=== PATIENT | female | born 1955 | race Caucasian/White ===

== ENCOUNTER → 2021-09-24 12:33 | Outpatient (CLI) | payer MEDICARE, SELFPAY ==
--- NOTE | ~2021-09-24 | DEXA_ITS ---
Bone Density Report Name: ADIEL RIVAS Age: 66 Sex: Female Ethnicity: White Date of : 1955 Indication: osteopenia; postmenopausal Referring Provider: Uriel Mccann Study: Bone densitometry was performed. Exam Date: September 24, 2021 Accession number: [id number] Bone Density: Region BMD T-score Z-score Classification AP Spine (L1-L4) 1.065 0.2 2.0 Normal Femoral Neck (Left) 0.798 -0.5 1.1 Normal Total Hip (Left) 0.918 -0.2 1.1 Normal Femoral Neck (Right) 0.779 -0.6 1.0 Normal Total Hip (Right) 0.888 -0.4 0.9 Normal Total Hip Mean 0.903 -0.3 1.0 Normal World Health Organization criteria for BMD impression classify patients as: Normal (T-score at or above -1.0), Osteopenia (T-score between -1.0 and -2.5), or Osteoporosis (T-score at or below -2.5). 10-year Fracture Risk: FRAX not reported because: All T-scores for Spine Total, Hip Total, Femoral Neck at or above -1.0 Previous Exams: Region Exam Age BMD T-score BMD Change BMD Change Date g/cm2 vs Baseline vs Previous AP Spine(L1-L4) 09/24/2021 66 1.065 0.2 0.129* 0.069* 11/07/2012 57 0.995 -0.5 0.059* 0.033* 04/23/2009 54 0.962 -0.8 0.026* 0.029* 03/09/2007 52 0.933 -1.0 -0.002 -0.002 06/22/2005 50 0.936 -1.0 Total Hip(Left) 09/24/2021 66 0.918 -0.2 0.093* 0.110* 11/07/2012 57 0.808 -1.1 -0.016 0.023 04/23/2009 54 0.785 -1.3 -0.039* -0.007 03/09/2007 52 0.792 -1.2 -0.032* -0.032* 06/22/2005 50 0.824 -1.0 Total Hip(Right) 09/24/2021 66 0.888 -0.4 0.012 0.099* 11/07/2012 57 0.789 -1.3 -0.087* 0.028* 04/23/2009 54 0.761 -1.5 -0.115* -0.033* 03/09/2007 52 0.794 -1.2 -0.082* -0.082* 06/22/2005 50 0.876 -0.5 *Denotes significance at 95% confidence level, LSC for AP Spine = 0.022 g/cm2, LSC for Total Hip = 0.027 g/cm2 Clinical Information Provided by Patient: Has used the following medications: HRT (i.e. estrogen/hormone therapy), Vitamin D, Calcium Patient maximum height was 65 Menopause Age: 50 Drinks caffeinated beverages Onset of menses at age 14 Number of children 3 Impression: The patient has normal bone mass. No significant bone loss was observed. Discussion: BONE DENSITY IS ABOVE THE MINIMUM
== END ==
PROVIDERS: PCP Family Medicine; Visit Provider Nurse Practitioner Family
DX: Z78.0 Asymptomatic menopausal state (principal)
CPT/HCPCS: 77080

== ENCOUNTER 2022-09-30 06:52 | Day surgery (SDC) | payer MEDICARE, SELFPAY ==
[2022-08-25 14:49] VITALS: BMI 20.7
[2022-09-15 11:12] VITALS: BMI 20.9
--- NOTE | 2022-09-30 07:07 | WPDANESEPPF ---
Anes - Initial Pre Proc Eval Procedure: Operation Date: 09/30/22 08:30 Proposed Procedures p Screening Colonoscopy - Tony Conroy MD Date/Time: 09/30/22 07:07 Surgeon: Tony Conroy MD Pre Op Diagnosis: Neoplasm Screening Patient Data Age: 67 Gender: F Height: 1.65 m Weight: 57 kg Allergies Allergy/AdvReac Type Severity Reaction Status Date / Time No Known Allergies Allergy Verified 09/30/22 07:16 Home Medications Medication Instructions Recorded Confirmed Type calcium carbonate 500 mg calcium 500 mg PO DAILY 03/17/21 09/30/22 History (1,250 mg) tablet cholecalciferol (vitamin D3) 25 25 mcg PO DAILY 03/17/21 09/30/22 History mcg (1,000 unit) tablet (Vitamin D3) glucosam 750 mg-chondroi 100 1 tablet PO DAILY 03/17/21 09/30/22 History mg-hyalur 1.65 mg-CF borate 108 mg tablet ([employer]) alprazolam 0.5 mg tablet (Xanax) 0.5 mg PO QHS PRN sleep #30 tabs 08/04/22 09/30/22 Rx diclofenac sodium 50 mg 50 mg PO TID PRN pain #90 tabs 08/04/22 09/30/22 Rx tablet,delayed release levothyroxine 100 mcg tablet 100 mcg PO DAILY #90 tabs 09/13/22 09/30/22 Rx Patient hx anesthesia problems: none Family hx anesthesia problems: none Results Review: All pre-operative results and documents have been reviewed as part of the pre-operative evaluation. [facility] Past Medical History Medical History Anxiety BMI 20.0-20.9, adult Hormone replacement therapy Hx of fibrocystic disease of breast Hypothyroid Osteoarthritis Osteopenia Post-menopausal Screen for colon cancer Screening for lipid disorders Varicose veins of both lower extremities Surgical History Surgical History History of breast augmentation Family History Family History Other Diabetes mellitus Hypertension Thyroid disease Social History Social History Smoking status: Never smoker Alcohol intake: never Drinks per week: 4 Substance use: never Substance use type: does not use Lack of Food: Never True Current Housing: I Have Housing Concerned About Future Housing: No Difficulty Paying Gas/Electric Bills: No Difficulty Paying for Meds: No Currently Unemployed: No Education: Master's Degree or Higher Living arrangements: with family Spiritual care concerns: No Anes - Eval Final PreProcedure Day of Procedure 09/30/22 07:07 Patient weight: normal Heart: regular rate and rhythm Lungs: clear to auscultation and normal air movement Airway: Mallampati scale class II Neurological: alert and oriented Last oral intake: >/= 8 hours ASA classification: II Emergent: no Anesthetic plan: proceed Anesthesia type and monitoring: general GIVS and standard monitoring Results Review: All pre-operative results and documents have been reviewed as part of the pre-operative evaluation. Informed Consent: The patient's anesthetic plan and its attendant risks and benefits were discussed with the patient/family/POA. Questions were solicited and answers provided to the satisfaction of the patient/family/POA.
[2022-09-30 07:10] VITALS: BP 138/59; PULSE 60; RESP 18; TEMP 36.9; O2SAT 100
--- NOTE | 2022-09-30 07:22 | PM.HPGS ---
History of Present Illness History of Present Illness Consent: Risks, benefits, and alternatives have been discussed and questions answered. Patient agrees to proceed with procedure. Chief complaint: Neoplasm Screening Narrative: Ann-Marie Germain is a 67 year old female Presents for screening colonoscopy. Patient's current weight appetite and bowel movements are normal. Patient denies abdominal pain. She has had no bleeding. Family history is noncontributory. Previous colonoscopy 2009 was unremarkable. Patient presents today for neoplasia screening colonoscopy. Review of Systems Review of Systems: Review of systems noncontributory. [facility] Past Medical History Medical History Anxiety BMI 20.0-20.9, adult Hormone replacement therapy Hx of fibrocystic disease of breast Hypothyroid Osteoarthritis Osteopenia Post-menopausal Screen for colon cancer Screening for lipid disorders Varicose veins of both lower extremities Surgical History Surgical History History of breast augmentation Family History Family History Other Diabetes mellitus Hypertension Thyroid disease Social History Social History Smoking status: Never smoker Alcohol intake: never Drinks per week: 4 Substance use: never Substance use type: does not use Lack of Food: Never True Current Housing: I Have Housing Concerned About Future Housing: No Difficulty Paying Gas/Electric Bills: No Difficulty Paying for Meds: No Currently Unemployed: No Education: Master's Degree or Higher Living arrangements: with family Spiritual care concerns: No Meds Home Medications and Allergies Home Medications Medication Instructions Recorded Confirmed Type calcium carbonate 500 mg calcium 500 mg PO DAILY 03/17/21 09/30/22 History (1,250 mg) tablet cholecalciferol (vitamin D3) 25 25 mcg PO DAILY 03/17/21 09/30/22 History mcg (1,000 unit) tablet (Vitamin D3) glucosam 750 mg-chondroi 100 1 tablet PO DAILY 03/17/21 09/30/22 History mg-hyalur 1.65 mg-CF borate 108 mg tablet ([employer]) alprazolam 0.5 mg tablet (Xanax) 0.5 mg PO QHS PRN sleep #30 tabs 08/04/22 09/30/22 Rx diclofenac sodium 50 mg 50 mg PO TID PRN pain #90 tabs 08/04/22 09/30/22 Rx tablet,delayed release levothyroxine 100 mcg tablet 100 mcg PO DAILY #90 tabs 09/13/22 09/30/22 Rx Allergies Allergy/AdvReac Type Severity Reaction Status Date / Time No Known Allergies Allergy Verified 09/30/22 07:16 Vital Signs Vital Signs - 24 hr 09/30/22 07:10 Temperature 98.5 F Pulse Rate 60 Respiratory Rate 18 Blood Pressure 138/59 L Pulse Oximetry 100 Oxygen Delivery Room Air Exam Narrative: Physical exam reveals patient to be alert. Vital signs stable. HEENT exam is unremarkable. Patient is anicteric. Lungs are clear to auscultation and percussion. Heart is without murmur or extra sounds. Abdomen bowel sounds are present soft nontender with no organomegaly. Digital external rectal exam normal. Assessment and Plan Assessment and plan (1) Screen for colon cancer: Code(s): Z12.11 - Encounter for screening for malignant neoplasm of colon Status: Acute Assessment and Plan: Patient presents for screening colonoscopy. She appears to be at average risk for colon polyps. Further recommendations may be given after endoscopy.
[2022-09-30] MEDS: LACTATED RINGERS 1,000 ML 150 ML IV CONT (07:51)
[2022-09-30] MEDS: SIMETHICONE ORAL SUSPENSION 20 MG/0.3 ML 30 ML BOTTLE 0.6 ML IRRIGATION (08:53)
[2022-09-30 09:06] VITALS: BP 131/73; PULSE 80; RESP 16; O2SAT 99
[2022-09-30 09:16] VITALS: BP 133/70; PULSE 66; RESP 18; O2SAT 100
[2022-09-30 09:26] VITALS: BP 122/61; PULSE 62; RESP 18; O2SAT 100
--- NOTE | 2022-09-30 12:55 | WPDANESPN ---
Anes - Prog Note Post-Op Date/Time: 09/30/22 12:55 Cardiovascular status: normal Respiratory status: normal Airway patency: baseline Mental status: baseline Post-Op hydration status: normal Vital Signs: Last Vital Signs Temp 36.9 C 09/30/22 07:10 Pulse 62 09/30/22 09:26 Resp 18 09/30/22 09:26 BP 122/61 09/30/22 09:26 Pulse Ox 100 09/30/22 09:26 O2 Del Method Room Air 09/30/22 09:26 Pain Score (VAS): 0 I/O: Intake & Output 09/29/22 09/30/22 09/30/22 23:59 07:59 15:59 Intake Total 800 Balance 800 Post-procedural complaints: none Patient Feedback: Patient satisfied with anesthetic care. Other Findings: Patient vital signs back to baseline. Patient denies nausea and vomiting. Patient's pain under control. Patient OK for discharge.
== END 2022-09-30 09:49 | disposition home or self-care (01) ==
PROVIDERS: PCP Family Medicine; Visit Provider Internal Medicine Gastroenterology
PROC: 0DJD8ZZ Inspection of Lower Intestinal Tract, Via Natural or Artificial Opening Endoscopic (ICD-10-PCS; CPT 45378; principal; 2022-09-30 08:30)
DX: Z12.11 Encounter for screening for malignant neoplasm of colon (principal)
CPT/HCPCS: 45378

== ENCOUNTER 2023-09-09 11:28 | Outpatient (CLI) | payer MEDICARE, SELFPAY ==
--- NOTE | ~2023-09-09 | XR_ITS ---
Left Shoulder Technique: AP and axillary views were obtained. Clinical History: Pain Findings: No fracture or dislocation is seen. Osseous alignment is anatomic. The glenohumeral and acr omioclavicular joint spaces are preserved. Questionable developing calcific tendinitis of the rotator cuff. Impression: Questionable developing calcific tendinitis of the rotator cuff. Reviewed, dictated and finalized at location . Impression: Questionable developing calcific tendinitis of the rotator cuff.
== END 2023-09-09 11:29 ==
LOC: MICIMG 11:29
PROVIDERS: PCP Family Medicine; Visit Provider Physician Assistant Medical
DX: M25.512 Pain in left shoulder (principal)
CPT/HCPCS: 73030

== ENCOUNTER 2024-01-04 14:38 | Outpatient (CLI) | payer MEDICARE, SELFPAY ==
--- NOTE | ~2024-01-04 | DEXA_ITS ---
Bone Density Report Name: ADIEL RIVAS Age: 68 Sex: Female Ethnicity: White Date of : 1955 Indication: postmenopausal; screening for osteoporosis; height loss; secondary osteoporosis; Referring Provider: GINA COLLIER Study: Bone densitometry was performed. Exam Date: January 04, 2024 Accession number: [id number] Bone Density: Region BMD T-score Z-score Classification AP Spine(L1-L4) 1.105 0.5 2.6 Normal Femoral Neck (Left) 0.805 -0.4 1.3 Normal Total Hip (Left) 0.849 -0.8 0.7 Normal Femoral Neck (Right) 0.794 -0.5 1.2 Normal Total Hip (Right) 0.878 -0.5 0.9 Normal Total Hip Mean 0.864 -0.7 0.8 Normal World Health Organization criteria for BMD impression classify patients as: Normal (T-score at or above -1.0), Osteopenia (T-score between -1.0 and -2.5), or Osteoporosis (T-score at or below -2.5). 10-year Fracture Risk: FRAX not reported because: All T-scores for Spine Total, Hip Total, Femoral Neck at or above -1.0 Clinical Information Provided by Patient: Has secondary osteoporosis Has used the following medications: Vitamin D, Calcium Patient maximum height was 65 Menopause Age: 47 Drinks caffeinated beverages Onset of menses at age 13 Number of children 3 Impression: The patient has normal bone mass. Discussion: BONE DENSITY IS ABOVE THE MINIMUM DESIRABLE LEVEL AT ALL SKELETAL SITES TESTED. This patient?s bone mineral density is above the minimum desirable level (T-score -1.0 or better) at all sites measured. The patient should follow a healthful lifestyle (good nutrition with adequate calcium and vitamin D, and appropriate weight-bearing exercise). Follow-Up: Consider repeating this study in 5 years or sooner if there is some new clinical indication. Reported by: RUDY on 01/04/2024 3:07:00 PM. Reviewed, dictated and finalized at location [facility]
== END 2024-01-04 14:39 | disposition home or self-care (01) ==
LOC: ANHIMG 14:40
PROVIDERS: PCP Family Medicine; Visit Provider Physician Assistant Medical
DX: Z78.0 Asymptomatic menopausal state (principal)
CPT/HCPCS: 77080

== ENCOUNTER 2024-01-24 10:49 | Outpatient (CLI) | payer MEDICARE, SELFPAY ==
--- NOTE | ~2024-01-24 | MR_ITS ---
EXAMINATION: MR shoulder LT wo con DATE: 01/24/2024 11:24 INDICATION: Left shoulder pain post lifting injury TECHNIQUE: Magnetic resonance imaging (MRI) of the left shoulder was performed without intravenous co ntrast. Sequences included axial PD-weighted FS FSE, coronal oblique PD-weighted FS FSE, coronal obli que T2-weighted FS FSE, sagittal PD-weighted FS FSE, and sagittal T1-weighted SE. COMPARISON: None. FINDINGS: Coracoacromial arch: The acromion undersurface is curved in morphology (type II). The coracoacromial ligament is normal. M ild to moderate acromioclavicular osteoarthritis. Rotator cuff: Mild supraspinatus and infraspinatus tendinopathy. There is a small intrasubstance tear at the greate r tuberosity footplate of the conjoined portion of the tendon which involves two thirds of the tendon thickness but without evident involvement of the articular or bursal surfaces. The teres minor tendo n and subscapularis tendon are normal. Normal rotator cuff muscle bulk and signal. Biceps tendon, glenoid labrum and glenohumeral cartilage: Long head of the biceps tendon is normal. Glenoid labrum is normal. There is mild partial-thickness c artilage loss with smooth chondral surface and without degenerative subchondral changes along the inf eromedial aspect of the humeral head. Fluid: Physiologic amount of fluid in the glenohumeral joint and biceps tendon sheath. No loose osteochondr al bodies. Mild increased fluid signal in the subacromial/subdeltoid bursa consistent with mild bursi tis. Bones: Mild cystic and edema-like signal change at the greater tuberosity at the site of the intrasubstance rotator cuff tear. No fracture or abnormal marrow replacing process. IMPRESSION: 1. Mild supraspinatus and infraspinatus tendinopathy with small moderate severity intrasubstance tear at the footplate of the conjoined portion of the tendon. 2. Mild glenohumeral and mild to moderate acromioclavicular osteoarthritis. 3. Mild subacromial/subdeltoid bursitis. Reviewed, dictated and finalized at location B. IMPRESSION: 1. Mild supraspinatus and infraspinatus tendinopathy with small moderate severi ty intrasubstance tear at the footplate of the conjoined portion of the tendon. 2. Mild glenohumeral and mild to moderate acromioclavicular osteoarthritis. 3. Mild subacromial/subdeltoid bursitis.
== END 2024-01-24 10:50 | disposition home or self-care (01) ==
LOC: GOSHIMG 10:50
PROVIDERS: PCP Family Medicine; Visit Provider Nurse Practitioner Adult Health
DX: M77.8 Other enthesopathies, not elsewhere classified (principal); M75.52 Bursitis of left shoulder; M19.012 Primary osteoarthritis, left shoulder
CPT/HCPCS: 73221

== ENCOUNTER 2024-07-04 12:51 | Outpatient (CLI) | payer MEDICARE, SELFPAY ==
--- NOTE | ~2024-07-04 | US_ITS ---
EXAMINATION: US FNA additional DATE: 07/04/2024 14:11 INDICATION: Thyroid nodules TECHNIQUE: A time-out was performed to verify the patient's name, date of , and procedure to be performed . The procedure and its benefits and risks were discussed with the patient. Risks specifically discus sed included bleeding and infection. The patient understood the risks and agreed to proceed. The neck was prepped and draped in the usual sterile manner. Attention was first turned to the nodule left th yroid lobe. 5 mL 1% lidocaine was used for local anesthesia. 6 passes were made with a 25G needle in to the lesion. Appropriate needle location was documented with continuous sonographic guidance. Atte ntion was then transferred to the nodule at the thyroid isthmus. An additional 4 mm one percent lidoc kenneth was used for local anesthesia. 6 passes were made with a 25G needle into the lesion. Appropriat e needle location was documented with continuous sonographic guidance. Sterile bandages were applied. There were no immediate complications. FINDINGS: Grayscale ultrasound images demonstrate biopsy needles advanced first into the 2.2 cm solid hypoechoi c TI RADS 4 nodule in the inferior left thyroid. Subsequent images demonstrate biopsy needles advance d into the 1.5 cm solid isoechoic TI RADS 3 nodule at the thyroid isthmus. IMPRESSION: 1. Successful ultrasound-guided fine needle aspiration of a 2.2 cm TI-RADS 4 left thyroid nodule. 2. Successful ultrasound guided fine needle aspiration of a 1.5 cm TI-RADS 3 nodule at the thyroid is thmus. Reviewed, dictated and finalized at location A. BASIS ADMINISTRATOR IMPRESSION: 1. Successful ultrasound-guided fine needle aspiration of a 2.2 cm TI-RADS 4 l eft thyroid nodule. 2. Successful ultrasound guided fine needle aspiration of a 1.5 cm TI-RADS 3 no dule at the thyroid isthmus.
--- NOTE | ~2024-07-04 | US_ITS ---
EXAMINATION: US FNA w image guidance DATE: 07/04/2024 14:11 INDICATION: Thyroid nodules TECHNIQUE: A time-out was performed to verify the patient's name, date of , and procedure to be performed . The procedure and its benefits and risks were discussed with the patient. Risks specifically discus sed included bleeding and infection. The patient understood the risks and agreed to proceed. The neck was prepped and draped in the usual sterile manner. Attention was first turned to the nodule left th yroid lobe. 5 mL 1% lidocaine was used for local anesthesia. 6 passes were made with a 25G needle in to the lesion. Appropriate needle location was documented with continuous sonographic guidance. Atte ntion was then transferred to the nodule at the thyroid isthmus. An additional 4 mm one percent lidoc kenneth was used for local anesthesia. 6 passes were made with a 25G needle into the lesion. Appropriat e needle location was documented with continuous sonographic guidance. Sterile bandages were applied. There were no immediate complications. FINDINGS: Grayscale ultrasound images demonstrate biopsy needles advanced first into the 2.2 cm solid hypoechoi c TI RADS 4 nodule in the inferior left thyroid. Subsequent images demonstrate biopsy needles advance d into the 1.5 cm solid isoechoic TI RADS 3 nodule at the thyroid isthmus. IMPRESSION: 1. Successful ultrasound-guided fine needle aspiration of a 2.2 cm TI-RADS 4 left thyroid nodule. 2. Successful ultrasound guided fine needle aspiration of a 1.5 cm TI-RADS 3 nodule at the thyroid is thmus. Reviewed, dictated and finalized at location A. ER IMPRESSION: 1. Successful ultrasound-guided fine needle aspiration of a 2.2 cm TI-RADS 4 l eft thyroid nodule. 2. Successful ultrasound guided fine needle aspiration of a 1.5 cm TI-RADS 3 no dule at the thyroid isthmus.
--- OUTSIDE RECORDS SUMMARY | 2024-07-04 13:00 | XMS_ITS | Encounter Summary ---
Author Organization [facility] Address [address] [place] [address] Care Team Providers Care Women'S Soccer Coach Name Role Phone Ni Fuchs MD Primary Care Provider [phone] Encounter Details Date Type Department Care Team (Latest Contact Info) Description 06/24/2020 MyChart Message Enc [facility] - [place] [address] [place] [address] [address] [place] [address] Ni Fuchs MD [address] [place] [address] [address] [place] [address] Covid vaccination Social History Tobacco Use Types Packs/Day Years Used Date Smoking Tobacco: Never Smokeless Tobacco: Never Comments:Dr Fuchs Alcohol Use Standard Drinks/Week Comments Yes 5 (1 standard drink = 0.6 oz pur e alcohol) wine occasionally PHQ-2 Answer Date Recorded PHQ-2 Score 0 06/18/2020 Comments No Sex and Gender Information Value Date Recorded Sex Assigned at Not on file Legal Sex Female 9:29 AM CDT Gender Identity Not on file Sexual Orientation Not on file COVID-19 Exposure Response Date Recorded In the last month, have you been in contact with someone who was confirmed or suspected to have Coronavirus / COVID-19? No / Unsure 06/18/2020 2:01 PM HEAD UP OPERATOR HELPER documented as of this encounter Plan of Treatment Not on file documented as of this encounter Visit Diagnoses Not on filedocumented in this encounter Additional Health Concerns Assessment Noted Time PHQ-9 Depression Total Score: 2 06/18/19 21 3:34 PM HEAD UP OPERATOR HELPER documented as of this encounter Care Teams Women'S Soccer Coach Relationship Specialty Start Date End Date Ni Fuchs MD [address] [address] PCP - General INTERNAL MEDICINE 06/13/20 02/17/21 documented as of this encounter
--- OUTSIDE RECORDS SUMMARY | 2024-07-04 13:00 | XMS_ITS | Continuity of Care Document ---
Author Organization [facility] Address [address] [place] [address] [facility] [address] [place] [address] Phone Care Team Providers Care City Councilman Name Role Phone Ivan Zimmer Unavailable Unavailable Procedures Procedure Date Office/outpatient Visit, [facility] Advance Directives Directive Yes / No Effective Date File Name No Information Encounters Encounter Description Practice Location Reason(s) For Visit Diagnoses Date Provider Providers Copied on Encounter Office/outpat ient Visit, [facility], [address], [place], [place], [id number], [place] tel:[phone] [facility] No Information [phone] 0 Mesha Love. [address] [facility] [address], [place], [address], [place]. tel:[phone] Family History Family Member Type Diagnosis Age At Onset No Information Payers Payer name Insurance type Covered alliance party ID Authoriza tion(s) No Information Social History Type Description Quantity Date Captured Comments Sex Female Smoking Status No Information Chief Complaint And Reason For Visit No Information Reason For Referral Reason For Referral No Information History Of Present Illness Encounter Date Complaint History Of Prese nt Illness No Information Functional Status Date Functional Assessmen t No Information Instructions Date Instruction Additional Infor mation No Information Assessments Type Assessment Date No Information Patient Care Teams Name Effective Dates (start - stop) Status Members No Information
--- OUTSIDE RECORDS SUMMARY | 2024-07-04 13:00 | XMS_ITS | Referral Summary ---
Author Organization [facility] Address [address] [facility] [address] [place] [address] Phone Care Team Providers Care [employer] Name Role Phone Michi Sanchez MD Primary Care Provider Encounters Date Type Department Care Team Description 06/20/2024 9:15 AM BUS ATTENDANT Office Visit [facility] Vascular at [address] [place] [id number] Neda Estrada NP Varicose veins of both lower extremities with inflammation (Primary Dx); Acquired hypothyroidism 05/19/2024 2:00 PM BUS ATTENDANT Telemedicine [facility] Virtual Care [address] [place] [address] Dhara Rich NP Acute non-recurrent sinusitis, unspecified location (Primary Dx) from Last 3 Months Allergies No known active allergies Medications diclofenac DR (VOLTAREN) 75 mg EC tablet TK 1 T PO BID 3 12/28/2018 Active ALPRAZolam (XANAX) 0.5 mg tablet Take 0.5 mg by mouth nightly as needed Active multivitamin capsule Take 1 capsule by mouth daily Active COMPOUNDED MEDICATION, PRESCRIPTION, Bio-Identica l Active [place] Thyroid 60 mg tablet 07/14/2021 Active busPIRone (BUSPAR) 7.5 mg tablet Take 7.5 mg by mouth 2 (two) times a day 02/09/2022 Active hydroCHLOROthia zide (HYDRODIURIL) 25 mg tablet Take 25 mg by mouth daily 02/09/2022 Active levothyroxine (SYNTHROID) 88 mcg tablet Take 1 tablet (88 mcg total) by mouth daily 06/05/2024 Active Active Problems Problem Noted Date Diagnosed Date Varicose veins of both lower extremities with in flammation 06/21/2024 Assessment & Plan (06/21/2024 3:50 PM BUS ATTENDANT): Impression: Patient reports the pain to her left lower extremity associated with varicose veins. Patient has had sclerotherapy done to bilateral lower extremities with the most recent treatment approximately [address] Jaramillo. On exam, patient has a dilated vein noted to the left medial calf [id number]. Patient does not wear compression therapy at this time. Plan: Recommend compression therapy. -prescription for medical grade compression stockings given to patient to fill at [facility]. -patient to follow up as needed. Osteopenia of multiple sites 12/23/2020 Assessment & Plan (12/23/2020 3:08 PM CDT): Due for DEXA scan. Patient not currently taking calcium or vitamin d supplement. Acute pain of right shoulder 12/23/2020 Assessment & Plan (12/23/2020 3:08 PM CDT): [place] at biceps tendon insertion. Offered xray and PT, patient declined at this time. Recommended tylenol or NSAID therapy, especially when playing pickleball. Did also provide home exercises to try. Advised patient return if pain worsens, numbness, tingling, weakness occur, or any changes. Caregiver stress 12/23/2020 Assessment & Plan (12/23/2020 3:19 PM CDT): Advised patient that should she reconsider therapy or medication to let us know. She feels she can control her stress well enough currently. Trigger middle finger of left hand 07/02/2020 Postmenopausal 06/18/2020 Heart murmur 03/08/2019 Assessment & Plan (03/08/2019 5:47 PM CDT): Echocardiogram scheduled tomorrow to evaluate heart murmur BMI 21.0-21.9, adult 03/08/2019 Assessment & Plan (03/08/2019 5:47 PM CDT): With BMI 25 or less this patient is a healthy weight for age Acquired hypothyroidism 02/07/2019 Assessment & Plan (06/21/2024 3:50 PM BUS ATTENDANT): Impression: Chronic and well controlled. Plan: Continue Synthroid Assessment & Plan (03/08/2019 5:47 PM CDT): Chronic- Refill given on [place] thyroid. Primary osteoarthritis of both hands 02/07/2019 Adjustment insomnia 02/07/2019 Assessment & Plan (02/07/2019 5:29 PM CDT): Patient takes a low-dose of alprazolam on a as needed basis. During a future visit, I will explore other options for controlling insomnia. Patient is reluctant to admit that she suffers from significant anxiety or depression. Immunizations Immunization Administration Dates Next Due DTaP, Unspecified 03/08/2019 Flucelvax Influenza Quad 03/14/2017 Influenza, Quadrivalent, Spl it, Preservative Free, Intramuscular 04/08/2020,02/07/2019 Influenza, Trivalent, IM (MDV) 02/28/2014,2012 Pfizer SARS-CoV-2 Monovalent Vaccination (12+ Yrs) PURPLE 07/02/2020,06/11/2020 Pneumococcal Polysaccharide PPV23 11/27/2019 Tdap 03/08/2019 ZOSTER Recombinant 11/27/2019 Social History Tobacco Use Types Packs/Day Years Used Date Smoking Tobacco: Never Smokeless Tobacco: Never Alcohol Use Standard Drinks/Week Comments Yes 0 (1 standard drink = 0.6 oz pur e alcohol) occasional AUDIT-C Answer Date Recorded Q1: How often do you have a drink containing alc ohol? 2-3 times a week 12/23/2020 Q2: How many drinks containi ng alcohol do you have on a typical day when you are drinking? 1 or 2 12/23/2020 Frequency of Binge Drinking Not on file 12/14 PHQ-2 Answer Date Recorded PHQ-2 Total Score (If total score is 3 or more points, staff should administer the PHQ-9) 0 12/23/2020 Comments Unknown Sex and Gender Information Value Date Recorded Sex Assigned at Not on file Legal Sex Female 9:43 PM BUS ATTENDANT Gender Identity Not on file Sexual Orientation Not on file Last Filed Vital Signs Vital Sign Reading Time Taken Comments Blood Pressure 145/83 06/20/2024 9:30 AM BUS ATTENDANT Pulse 71 06/20/2024 9:30 AM BUS ATTENDANT Temperature 36.9 C (98.4 F) 03/01/2022 12:25 PM CDT Respiratory Rate 18 03/01/2022 12:25 PM CDT Oxygen Saturation 98% 06/20/2024 9:30 AM BUS ATTENDANT Inhaled Oxygen Concentration - - Weight 55.8 kg (123 lb) 06/20/2024 9:30 AM BUS ATTENDANT Height 165.1 cm (5' 5 ) 06/20/2024 9:30 AM BUS ATTENDANT Body Mass Index 20.47 06/20/2024 9:30 AM BUS ATTENDANT Plan of Treatment Not on file Insurance MEDICARE [employer] [facility] MEDICARE GOLD Care Teams [employer] Relationship Specialty Start Date End Date Michi Sanchez MD PCP - General Family Medicine 03/01/22
--- OUTSIDE RECORDS SUMMARY | 2024-07-04 13:00 | XMS_ITS | Encounter Summary ---
Author Organization [facility] Address [address] [place] [address] Care Team Providers Care Floating Derrick Operator Name Role Phone Ni Fuchs MD Primary Care Provider [phone] Encounter Details Date Type Department Care Team (Latest Contact Info) Description 08/14/2020 [employer] Message Enc [facility] - [place] [address] [address] [place] [address] Ni Fuchs MD [address] [place] [phone] mammogram results Social History Tobacco Use Types Packs/Day Years Used Date Smoking Tobacco: Never Smokeless Tobacco: Never Comments:Dr uFchs Alcohol Use Standard Drinks/Week Comments Yes 5 (1 standard drink = 0.6 oz pur e alcohol) wine occasionally PHQ-2 Answer Date Recorded PHQ-2 Score - If the patient scores above 3, please move on to questions 3-9 0 07/02/2020 Comments No Sex and Gender Information Value Date Recorded Sex Assigned at Not on file Legal Sex Female 9:29 AM CDT Gender Identity Not on file Sexual Orientation Not on file documented as of this encounter Plan of Treatment Not on file documented as of this encounter Visit Diagnoses Not on filedocumented in this encounter Additional Health Concerns Assessment Noted Time PHQ-9 Depression Total Score: 2 07/02/19 21 7:56 AM 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
--- OUTSIDE RECORDS SUMMARY | 2024-07-04 13:00 | XMS_ITS | Clinical Summary ---
Author Organization [facility] Address [address] [place] [address] Phone Care Team Providers Care Wood Pole Treater Name Role Phone Michi Sanchez MD Primary Care Provider [phone] Allergies No known active allergies Medications diclofenac DR (VOLTAREN) 75 mg EC tablet TK 1 T PO BID 3 12/28/2018 Active ALPRAZolam (XANAX) 0.5 mg tablet Take 0.5 mg by mouth nightly as needed Active multivitamin capsule Take 1 capsule by mouth daily Active COMPOUNDED MEDICATION, PRESCRIPTION, Bio-Identica l Active Makaweli Thyroid 60 mg tablet 07/14/2021 Active busPIRone [...] 06/21/2024 Assessment & Plan (06/21/2024 3:50 PM GREEN PROMOTIONS SPECIALIST): Impression: Patient reports the pain to her left lower extremity associated with varicose veins. Patient has had sclerotherapy done to bilateral lower extremities with the most recent treatment approximately [address] Jaramillo. On exam, patient has a dilated vein noted to the left medial calf [id number]. Patient does not wear compression therapy at this time. Plan: Recommend compression therapy. -prescription for medical grade compression stockings given to patient to fill at [facility]. -patient to follow up as needed. Osteopenia of multiple sites 12/23/2020 Assessment & Plan (12/23/2020 3:08 PM CDT): Due for DEXA scan. Patient not currently taking calcium or vitamin d supplement. Acute pain of right shoulder 12/23/2020 Assessment & Plan (12/23/2020 3:08 PM CDT): [place] at biceps tendon insertion. Offered xray and [...] 02/07/2019 Assessment & Plan (06/21/2024 3:50 PM GREEN PROMOTIONS SPECIALIST): Impression: Chronic and well controlled. Plan: Continue Synthroid Assessment & Plan (03/08/2019 5:47 PM CDT): Chronic- Refill given on Makaweli thyroid. Primary osteoarthritis of both hands 02/07/2019 Adjustment insomnia 02/07/2019 Assessment & Plan (02/07/2019 5:29 PM CDT): Patient takes a low-dose of alprazolam on a as needed basis. During a future visit, I will explore other options for controlling insomnia. Patient is reluctant to admit that she suffers from significant anxiety or depression. Encounters Date Type Department Care Team Description 06/20/2024 9:15 AM GREEN PROMOTIONS SPECIALIST Office Visit [facility] at [address] [place] [phone] Neda Estrada NP Varicose veins of both lower extremities with inflammation (Primary Dx); Acquired hypothyroidism 05/19/2024 2:00 PM GREEN PROMOTIONS SPECIALIST Telemedicine [facility] [address] [place] [phone] Dhara Rich NP Acute non-recurrent sinusitis, unspecified location (Primary Dx) from Last 3 Months Immunizations Immunization Administration Dates Next Due DTaP, Unspecified 03/08/2019 Flucelvax Influenza Quad 03/14/2017 Influenza, Quadrivalent, Spl it, Preservative Free, Intramuscular 04/08/2020,02/07/2019 Influenza, Trivalent, IM (MDV) 02/28/2014,2012 Pfizer SARS-CoV-2 Monovalent Vaccination (12+ Yrs) PURPLE 07/02/2020,06/11/2020 Pneumococcal Polysaccharide PPV23 11/27/2019 Tdap 03/08/2019 ZOSTER Recombinant 11/27/2019 Surgical History Surgery Date Site/Laterality Comments BREAST RECONSTRUCTION 05/16/2003 - 05/15/2004 BREAST FIBROADENOMA SURGERY 05/16/1982 - 05/15/1983 Medical History Medical History Date Comments Thyroid disease Arthritis Family History Medical History Relation Name Comments Heart attack Father Macular degeneration Father Osteoporosis Father Diabetes Mother Hypertension Mother Breast cancer Sister 1 Hypertension Sister 1 Breast cancer Sister 2 Diabetes Sister 2 Relation Name Status Comments Father Mother Alive Sister 1 Sister 2 Social History Tobacco Use Types Packs/Day Years [...] on file Legal Sex Female 9:43 PM GREEN PROMOTIONS SPECIALIST Gender Identity Not on file Sexual Orientation Not on file Obstetrics History Last Filed Vital Signs Vital Sign Reading Time Taken Comments Blood Pressure 145/83 06/20/2024 9:30 AM GREEN PROMOTIONS SPECIALIST Pulse 71 06/20/2024 9:30 AM GREEN PROMOTIONS SPECIALIST Temperature 36.9 C (98.4 F) 03/01/2022 12:25 PM CDT Respiratory Rate 18 03/01/2022 12:25 PM CDT Oxygen Saturation 98% 06/20/2024 9:30 AM GREEN PROMOTIONS SPECIALIST Inhaled Oxygen Concentration - - Weight 55.8 kg (123 lb) 06/20/2024 9:30 AM GREEN PROMOTIONS SPECIALIST Height 165.1 cm (5' 5 ) 06/20/2024 9:30 AM GREEN PROMOTIONS SPECIALIST Body Mass Index 20.47 06/20/2024 9:30 AM GREEN PROMOTIONS SPECIALIST Plan of Treatment Health Maintenance Due Date Last Done Comments Breast Cancer Screening-Mammogram 1955 Colon Cancer Screening-Colonoscopy 1955 Fall Risk Assessment 1955 Osteoporosis Screening-Bone Density Scan 1955 Hepatitis B Screening 1973 Zoster Vaccine (2 of 2) 01/22/2020 11/27/2019 Well Visit 65+ 02/14/2020 Pneumococcal vaccine 65+ (2 of 2 - PCV) 11/26/2020 11/27/2019 Depression Screening 12/23/2021 12/23/2020, 02/08/20 19 Covid-19 Vaccine (3 - 2023-2 5 season) 2024 07/02/2020, 06/11/2020 Influenza Vaccine (#1) 2024 , 02/07/2019, 03/14/2017, Additional history exists DTaP/Tdap/Td Vaccine (3 - Td or Tdap) 03/08/2029 03/08/2019, 03/08/2019 Hepatitis C Screening Discontinued Insurance MED[employer]ARE [employer] MEDICARE GOLD Care Teams Wood Pole Treater Relationship Specialty Start Date End Date Michi Sanchez MD PCP - General Family Medicine 03/01/22
--- OUTSIDE RECORDS SUMMARY | 2024-07-04 13:00 | XMS_ITS | Clinical Summary ---
Author Organization [facility] Address [address] [place] [id number] Care Team Providers Care Brick Picker Name Role Phone Unavailable Primary Care Provider Unavailabl e Allergies No known active allergies Medications ALPRAZolam 0.5 MG tablet Take 0.5 mg by mouth 3 (three) times daily as needed. 01/07/2020 Active chlorhexidine 0.12 % solution RINSE ONE CAPFUL FOR ONE MINUTE BID THEN SPIT USE AFTER BRUSHING AND FLOSSING 2020 Active ARMOUR THYROID 60 MG tablet 10/20/2020 Active Active Problems Problem Noted Date Diagnosed Date Trigger middle finger of left hand 07/02/2020 Postmenopausal 06/18/2020 Heart murmur 03/08/2019 Overview (11/11/2020): Stable, no concerns at the moment. Does not routinely follow with cardiology. Last Assessment & Plan: Echocardiogram scheduled tomorrow to evaluate heart murmur BMI 21.0-21.9, adult 03/08/2019 Overview (11/11/2020): Last Assessment & Plan: With BMI 25 or less this patient is a healthy weight for age Acquired hypothyroidism 02/07/2019 Overview (11/11/2020): Stable and tolerating current dose of Amour thyroid 60 mg. TSH checked 07/02/2020. Last Assessment & Plan: Chronic- Refill given on Lynn thyroid. Adjustment insomnia 02/07/2019 Overview (11/11/2020): Patient is reluctant to admit that she suffers from significant anxiety or depression. Phq 9 score of 2. On alprazolam nightly for insomnia as needed. Recommended melatonin 5 mg nightly. Last Assessment & Plan: Patient takes a low-dose of alprazolam on a as needed basis. During a future visit, I will explore other options for controlling insomnia. Patient is reluctant to admit that she suffers from significant anxiety or depression. Primary osteoarthritis of both hands 02/07/2019 Resolved Problems Problem Noted Date Diagnosed Date Resolved Date Hyperlipidemia 02/07/2019 07/02/2020 Immunizations Name Administration Dates Next Due Dtap (Generic) 03/08/2019 Fluzone 6 Months+ Quad (0.5 mL Prefilled Syringe ) 04/08/2020 PFIZER COVID-19 (ORIGINAL FO RMULATION, PURPLE CAP) mRNA, LNP-S, PF, 30 MCG/0.3 ML DOSE 06/11/2020 Pneumococcal (Pneumovax 23) 11/27/2019 Shingrix 11/27/2019 Family History Medical History Relation Comments Cancer Brother Heart Attack at 80+ Maternal Grandmother Hypertension Mother Other PMR Mother Heart Attack Paternal Grandfather Breast Cancer Sister breast Relation Status Comments Brother Father Maternal Grandmother Mother Alive Paternal Grandfather Sister Alive Social History Tobacco Use Types Packs/Day Years Used Date Smoking Tobacco: Never Smokeless Tobacco: Never Tobacco Cessation:Counseling Given: Yes Comments:Dr Fuchs Alcohol Use Standard Drinks/Week Comments [...] Sign Reading Time Taken Comments Blood Pressure 125/80 11/11/2020 11:21 AM CDT Pulse 72 11/11/2020 10:52 AM CDT Temperature 37.1 C (98.7 F) 11/11/2020 10:52 AM CDT Respiratory Rate 18 11/11/2020 10:52 AM CDT Oxygen Saturation 97% 11/11/2020 10:52 AM CDT Inhaled Oxygen Concentration - - Weight 58.5 kg (129 lb) 11/11/2020 10:52 AM CDT Height 165.1 cm (5' 5 ) 11/11/2020 10:52 AM CDT Body Mass Index 21.47 11/11/2020 10:52 AM CDT Plan of Treatment Health Maintenance Due Date Last Done Comments Zoster Vaccines (2 of 2) 01/22/2020 11/27/2019 Colorectal Cancer Screening Colonoscopy (10 Years) 02/04/2020 02/03/2010, 02/03/2010 Annual Medicare Wellness Visit 02/14/2020 Pneumococcal Vaccine: 65+ Years (2 of 2 - PCV) 11/26/2020 11/27/2019 Mammogram Screening 09/17/2022 09/17/2020, 05/22/2019, 04/12/2018, Additional history exists COVID-19 Vaccine ( - 2023- season) 2024 02/08/2021, 07/02/2020, 06/11/2020 Influenza Adult (#1) 2024 04/08/2020 DTaP, Tdap and Td Vaccines (2 - Tdap) 03/08/2029 03/08/2019 RSV Immunization or 60+ Years (1 - 1-dose 75+ series) 2030 Dexa Scan (General) Completed 02/28/2019 Hepatitis C Completed 07/02/2020 Meningococcal B Vaccine Aged Out No l onger eligible based on patient's age to complete this topic Meningococcal Vaccine Aged Out No austin jennifer eligible based on patient's age to complete this topic RSV Immunizations Under 20 Months Aged Out No longer eligible based on patient's age to complete this topic Procedures Procedure Name Priority Date/Time Associated Diagnosis Comments MAMMOGRAM GENERIC (SCAN ORDER) 09/17/2020 HEPATITIS C ANTIBODY Routine 07/02/2020 8:00 AM CHILD PROTECTIVE SERVICES SPECIALIST Encounter for hepatitis C screening test for low risk patient BONE DENSITY GENERIC (SCAN ORDER) 02/28/2019 COLONOSCOPY GENERIC (SCAN ORDER) 02/03/2010 from Last 3 Months or Most Recently Relevant to Health Maintenance Results * MAMMOGRAM GENERIC (09/17/2020) Anatomical Region Laterality Modality Other 09/17/2020 Narrative 09/17/2020 Ordered by an unspecified provider. us Documents Scanned SCANNING Final Result * HEPATITIS C ANTIBODY (07/02/2020 8:00 AM CHILD PROTECTIVE SERVICES SPECIALIST) HEPATITIS C AB NON-REACTI VE NON-REACT CONNIE 07/02/2020 9:32 PM CHILD PROTECTIVE SERVICES SPECIALIST [facility] Comment: ANTIBODIES TO HCV NOT DETECTED. DOES NOT EXCLUDE THE POSSIBILITY OF EXPOSURE TO HCV. 07/02/2020 8:00 AM CHILD PROTECTIVE SERVICES SPECIALIST us Ni Fuchs MD LABORATORY Final Result [facility] [address] [place] [address], [id number] * BONE DENSITY GENERIC (02/28/2019) Anatomical Region Laterality Modality Other 02/28/2019 Narrative 02/28/2019 Ordered by an unspecified provider. us Documents Scanned SCANNING Final Result * COLONOSCOPY GENERIC (02/03/2010) 02/03/2010 Narrative 02/03/2010 Ordered by an unspecified provider. us Documents Scanned SCANNING Final Result from Last 3 Months or Most Recently Relevant to Health Maintenance Insurance [id number]IC[facility]
== END 2024-07-04 12:52 | disposition home or self-care (01) ==
PROVIDERS: PCP Family Medicine; Visit Provider Internal Medicine
DX: E03.9 Hypothyroidism, unspecified (principal); E04.2 Nontoxic multinodular goiter
CPT/HCPCS: 10005; 10006; 88172; 88173; 88305

== ENCOUNTER 2024-10-22 12:46 | Outpatient (CLI) | payer MEDICARE, SELFPAY ==
--- NOTE | ~2024-10-22 | US_ITS ---
EXAMINATION: US FNA w image guidance DATE: 10/22/2024 13:57 INDICATION: Prior nondiagnostic biopsy of a nodule at the thyroid isthmus TECHNIQUE: A time-out was performed to verify the patient's name, date of , and procedure to be performed . The procedure and its benefits and risks were discussed with the patient. Risks specifically discus sed included bleeding and infection. The patient understood the risks and agreed to proceed. The neck was prepped and draped in the usual sterile manner. 4 mL 1% lidocaine was used for local anesthesia . 6 passes were made with a 25G needle into the lesion. Appropriate needle location was documented with continuous sonographic guidance. A sterile bandage was applied. There were no immediate compli cations. FINDINGS: Grayscale ultrasound images demonstrate biopsy needles advanced into a 1.4 cm solid isoechoic TI RADS 3 nodule at the right side of the thyroid isthmus. IMPRESSION: 1. Successful ultrasound-guided fine needle aspiration of a 1.4 cm TI RADS 3 nodule at the thyroid i sthmus. Reviewed, dictated and finalized at location A. IMPRESSION: 1. Successful ultrasound-guided fine needle aspiration of a 1.4 cm TI RADS 3 n odule at the thyroid isthmus.
--- OUTSIDE RECORDS SUMMARY | 2024-10-22 13:58 | XMS_ITS | Patient Health Record ---
Author Organization [facility] Address [address], [place] [address] Care Team Providers Care Beverage Steward Name Role Phone Migration, Provider Unavailable Unavailable Artis Jolley Unavailable [phone] Allergies No Known Allergies Results Component Value Reference Range Flag Notes MAMMO, SCREENING, BILATERAL, W/ CAD Reviewed date:12/08/2023 12:00:00 AM Interpretation: Performing Lab: Notes/Report: ESTRADIOL, SERUM Reviewed date:02/24/2024 12:00:00 AM Interpretation: Performing Lab: Notes/Report: ESTRADIOL 55.1 pg/mL THINPREP TIS PAP ([id number]) Reviewed date:06/27/2024 11:56:35 PM Interpretation: Performing Lab:[place] [address] Administration Tawny Resendiz [id number] [facility] Notes/Report: FASTING: UNKNOWN CLINICAL INFORMATION: N Non e given LMP: N NONE GIVEN PREV. PAP: N NONE GIVEN PREV. BX: N NONE GIVEN SOURCE: N None given STATEMENT OF ADEQUACY: N Satisfactory for evaluation. Endocervical/transformati on zone component absent. INTERPRETATION/RESULT: N Cytology Results: Negative for intraepithelial lesion or malignancy. COMMENT: N This Pap test has been evaluated with computer assisted technology. ORACLE DATABASE ANALYST: CRISTIANA López LMT(ASCP) CT screening location: [place] [address] Administration GLENDY Echols [address] REVIEW ORACLE DATABASE ANALYST: CRISTIANA SANTOS(ASCP) CT screening location: [place] [address] Administration GLENDY Echols [address] COMMENT EXPLANATORY NOTE: The Pap is a screening test for cervical cancer. It is not a diagnostic test and is subject to false negative and false positive results. It is most reliable when a satisfactory sample, regularly obtained, is submitted with relevant clinical findings and history, and when the Pap result is evaluated along with historic and current clinical information. ESTRONE (E1), SERUM Reviewed date:02/24/2024 12:00:00 AM Interpretation: Performing Lab: Notes/Report: ESTRONE, SERUM 69 pg/mL FSH (FOLLICLE-STIMULATING HO RMONE), SERUM Reviewed date:02/24/2024 12:00:00 AM Interpretation: Performing Lab: Notes/Report: FSH 27.6 mIU/mL PROGESTERONE, SERUM Reviewed date:02/24/2024 12:00:00 AM Interpretation: Performing Lab: Notes/Report: PROGESTERONE 1.1 ng/mL TESTOSTERONE, FREE + TOTAL, SERUM Reviewed date:02/24/2024 12:00:00 AM Interpretation: Performing Lab: Notes/Report: FREE TESTOSTERONE(DIRECT) 0.7 pg/mL TESTOSTERONE 104 ng/dL UNKNOWN Reviewed date:02/24/2024 12:00:00 AM Interpretation: Performing Lab: Notes/Report: TSH 0.664 uIU/mL Human Papillomavirus (HPV) Reviewed date:06/27/2024 11:58:17 PM Interpretation: Performing Lab: Notes/Report: HPV 16 Not Detected 0-30 HPV 18 Not Detected 0-30 HPV 31 Not Detected 0-30 HPV 33 Not Detected 0-30 HPV 35 Not Detected 0-30 HPV 39 Not Detected 0-30 HPV 45 Not Detected 0-30 HPV 51 Not Detected 0-30 HPV 52 Not Detected 0-30 HPV 56 Not Detected 0-30 HPV 58 Not Detected 0-30 HPV 59 Not Detected 0-30 HPV 66 Not Detected 0-30 HPV 68 Not Detected 0-30 RNase P Passed Reason For Referral No Information Medications Medication SIG (Take, Route, Frequency, Duration) Notes Start Date End Date Status BHRT Cream BHRT Cream > E2/P/TE = 1mg/100mg/1mg per Gram BHRT Cream 1 Gram BHRT Cream Daily = 4 clicks per Day Transdermal to inner thighs Daily DOSE- 2MG/100MG/5MG Active BHRT Cream BHRT Cream > E2/P/TE = 3mg/100mg/5mg per Gram BHRT Cream 1 Gram BHRT Cream Daily = 4 clicks per Day Transdermal to inner thighs Daily; Duration: 30 Days 06/13/2024 Active NUT ROASTER Thyroid 30 mg Tablet Oral 03/06/2024 Active NUT ROASTER Thyroid 15 mg Tablet Oral 03/06/2024 Active COMPOUNDED MEDICATION *Reorder f rom Medispan for eRx and Interaction Alerts* 03/06/2024 Active Levothyroxine Sodium 88 MCG Tablet 1 tablet in the morning on an empty stomach Orally Once a day Active Celecoxib 200 MG Capsule Oral 03/06/2024 Active Benzonatate 100 MG Capsule Oral 03/06/2024 Active Erythromycin 5 MG/GM Ointment Ophthalmic 03/06/2024 Active Diclofenac Sodium 50 MG Tablet Delayed Release Oral 03/06/2024 Active Levothyroxine Sodium 75 MCG Tablet Oral 03/06/2024 Active Levothyroxine Sodium 100 MCG Tablet Oral 03/06/2024 Active ALPRAZolam 0.5 MG Tablet Oral 03/06/2024 Active traZODone HCl 50 MG Tablet Oral 03/06/2024 Active Levothyroxine Sodium 88 MCG Tablet Oral 03/06/2024 Active Carmen Thyroid 15 MG Tablet Oral 03/06/2024 Active Azithromycin 250 MG Tablet Oral 03/06/2024 Active Carmen Thyroid 30 MG Tablet Oral 03/06/2024 Active Social History Social History Additional Details Category Social Info Options Details Migrated Social History Migrated Social History Alcohol Intake: Occasional 05/06/2023,Tobacco Years: Never smoker 10/13/2022 Problems Problem Type SNOMED Code ICD Code Onset Dates Problem Status W/U Status Risk Notes Problem Hormone replacement therapy (077455069) Hormone replacement therapy (Z79.890) Active confirmed Problem Menopausal syndrome (180063029) Menopausal syndrome (N95.1) Active confirmed Problem Insomnia (694988231) Insomnia, unspecified (G47.00) 02/23/20 Active confirmed Problem Unspecified menopausal and perimenopausal disorder (N95.9) 03/06/20 Active confirmed Problem Generalized hyperhidrosis (263658195) Generalized hyperhidrosis (R61) 02/23/20 Active confirmed Problem Therapeutic drug monitoring, quantitative (regime/therapy) (50421430) Encounter for therapeutic drug level monitoring (Z51.81) 02/23/20 Active confirmed Problem Reporting test result (526286332) Person consulting for explanation of examination or test findings (Z71.2) 10/15/19 Active confirmed Problem Hormone replacement therapy (795467697) Hormone replacement therapy (postmenopausal) (Z79.890) 03/06/20 Active confirmed Vital Signs Blood pressure diastolic 82 mm Hg 06/13/2024 Height-cm 165.1 cm 06/13/2024 Weight-kg 58.7 kg 06/13/2024 Height 65 in 06/13/2024 Blood pressure systolic 128 mm Hg 06/13/2024 Weight 129.4 lbs 06/13/2024 BMI 21.53 kg/m2 06/13/2024 Encounters Encounter Location Date Provider Diagnosis [facility] [address] [place] [id number] 02/16/2024 Provider Migration Hormone replacement therapy (postmenopausal) Z79.[address] [address] 03/06/2024 Artis Jolley Unspecified menopaus al and perimenopausal disorder N95.9 and Hormone replacement therapy (postmenopausal) Z79.[address] [address] 06/13/2024 Artis Jolley Routine gynecologica l examination Z01.419 ; Hormone replacement therapy Z79.890 and [facility]opausal syndrome N95.1 [facility] [place] [address] [place] [address] 06/13/2024 Artis Jolley [address] [address] 03/23/2024 Provider Migration [facility] [address] [place] [id number] 08/11/2024 Provider Migration [facility] [address] [place] [id number] 08/12/2024 Provider Migration [facility] [id number] [place] [address] 05/30/2024 Artis Jolley Assessments Encounter Date Diagnosis (ICD Code) Assessment Notes Treatment Notes Treatment Clinical Notes Section Notes 02/16/2024 Hormone replacement therapy (postmenopausal) (ICD-10 - Z79.890) 03/06/2024 Unspecified menopausal and perimenopausal disorder (ICD-10 - N95.9) 03/06/2024 Hormone replacement therapy (postmenopausal) (ICD-10 - Z79.890) 06/13/2024 Hormone replacement therapy (ICD-10 - Z79.890) 06/13/2024 Routine gynecological examination (ICD-10 - Z01.419) HPV HR PCR Panel 06/13/2024 Menopausal syndrome (ICD-10 - N95.1) Plan Of Treatment Pending Test Test Name Order Date [id number] 05/31/2024 Progesterone-250478 05/31/2024 Estradiol-344363 05/31/2024 Estrone, Serum-791597 05/31/2024 Testosterone,Free and Total-901297 05/31 TSH reflex to T4F 05/31/2024 Insurance Providers Payer Name Payer Address Payer Phone Subscriber Number Group Number Insured Name Patient Relationship to Insured Coverage Start Date Coverage End Date [employer] [address] [place], [place] [id number] Ann-Marie Lord Self - patient is the insured Medical (General) History Medical History History ICD Code Menopausal syndrome N95.1 Hormone replacement therapy Z79.890 Surgical History Surgery Date(Month/Year) Breast Implants Breast Biopsy > Lumpectomy 1982 Colonoscopy (08060280) Extraction of wisdom tooth (14907692) Insertion of bilateral breast prostheses (88777611)
--- OUTSIDE RECORDS SUMMARY | 2024-10-22 13:58 | XMS_ITS ---
Author Organization [facility] Address [address] [place], [place] [id number] Care Team Providers Care Financial Reporting Advisor Name Role Phone Migration, Provider Unavailable Unavailable REASON FOR VISIT [facility] [place] Medications Medication SIG (Take, Route, Frequency, Duration) Notes Start Date End Date Status Erythromycin 5 MG/GM Ointment Ophthalmic 03/06/2024 Active Levothyroxine Sodium 75 MCG Tablet Oral 03/06/2024 Active Levothyroxine Sodium 100 MCG Tablet Oral 03/06/2024 Active traZODone HCl 50 MG Tablet Oral 03/06/2024 Active Levothyroxine Sodium 88 MCG Tablet Oral 03/06/2024 Active Celecoxib 200 MG Capsule Oral 03/06/2024 Active Benzonatate 100 MG Capsule Oral 03/06/2024 Active Diclofenac Sodium 50 MG Tablet Delayed Release Oral 03/06/2024 Active Azithromycin 250 MG Tablet Oral 03/06/2024 Active Rogers Thyroid 30 MG Tablet Oral 03/06/2024 Active ALPRAZolam 0.5 MG Tablet Oral 03/06/2024 Active LABORER HEADING Thyroid 30 mg Tablet Oral 03/06/2024 Active LABORER HEADING Thyroid 15 mg Tablet Oral 03/06/2024 Active COMPOUNDED MEDICATION *Reorder f rom Medispan for eRx and Interaction Alerts* 03/06/2024 Active Rogers Thyroid 15 MG Tablet Oral 03/06/2024 Active Social History Social History Additional Details Category Social Info Options Details Migrated Social History Migrated Social History Alcohol Intake: Occasional 05/06/2023,Tobacco Years: Never smoker 10/13/2022 Encounters Encounter Location Date Provider Diagnosis [facility] [address] [facility] [place] [id number] 08/12/2024 Prov ider Migration Plan Of Treatment No Information Progress Notes * Leonardo GERMAINB: 955 (69 yo F)Acc No.[id number]:08/12/2024 Patient: Ann-Marie MA :1955 A ge:69 Y S ex:Female Phone: Address:[address] [place] [address] , [place], [address] Subjective: * Chief Complaints: * E MR-Cachorro * Medical History: Problems: Hormone replacement therapy Hypothyroidism Mammography finding Menopausal syndrome Osteopenia * 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 * Surgical History: Colonoscopy (87025106) Extraction of wisdom tooth (73122968) Insertion of bilateral breast prostheses (38337238) * Family History: M igrated Family History: Unspecified Relation: Family history of malignant neoplasm of ovary , Osteoporosis . M other: Hypertensive disorder . S ister: Family history of breast cancer , Hypertensive disorder . * Social History: M igrated Social History: M igrated Social History: Alcohol Intake: Occasional 05/06/2023,Tobacco Years: Never smoker 10/13/2022. * Medications: T akingALPRAZolam 0.5 MG Tablet Oral Rogers Thyroid 15 MG Tablet Oral Rogers Thyroid 30 MG Tablet Oral Azithromycin 250 MG Tablet Oral Benzonatate 100 MG Capsule Oral Celecoxib 200 MG Capsule Oral Diclofenac Sodium 50 MG Tablet Delayed Release Oral Erythromycin 5 MG/GM Ointment Ophthalmic Levothyroxine Sodium 100 MCG Tablet Oral Levothyroxine Sodium 75 MCG Tablet Oral Levothyroxine Sodium 88 MCG Tablet Oral traZODone HCl 50 MG Tablet Oral LABORER HEADING Thyroid 15 mg Tablet Oral LABORER HEADING Thyroid 30 mg Tablet Oral COMPOUNDED MEDICATION , Notes to Pharmacist: *Reorder from [facility] for eRx and Interaction Alerts*Taking ALPRAZolam 0.5 MG Tablet Oral Taking Rogers Thyroid 15 MG Tablet Oral Taking Rogers Thyroid 30 MG Tablet Oral Taking Azithromycin 250 MG Tablet Oral Taking Benzonatate 100 MG Capsule Oral Taking Celecoxib 200 MG Capsule Oral Taking Diclofenac Sodium 50 MG Tablet Delayed Release Oral Taking Erythromycin 5 MG/GM Ointment Ophthalmic Taking Levothyroxine Sodium 100 MCG Tablet Oral Taking Levothyroxine Sodium 75 MCG Tablet Oral Taking Levothyroxine Sodium 88 MCG Tablet Oral Taking traZODone HCl 50 MG Tablet Oral Taking LABORER HEADING Thyroid 15 mg Tablet Oral Taking LABORER HEADING Thyroid 30 mg Tablet Oral Taking COMPOUNDED MEDICATION , Notes to Pharmacist: *Reorder from [facility] for eRx and Interaction Alerts* * * Date:
--- OUTSIDE RECORDS SUMMARY | 2024-10-22 13:58 | XMS_ITS | Referral Summary ---
Author Organization [facility] Address [address] [place] [address] Phone Care Team Providers Care Union Contract Representative Name Role Phone Michi Sanchez MD Primary Care Provider + [phone] Allergies No known active allergies Medications diclofenac DR (VOLTAREN) 75 mg EC tablet TK 1 T PO BID 3 12/28/2018 Active ALPRAZolam (XANAX) 0.5 mg tablet Take 0.5 mg by mouth nightly as needed Active multivitamin capsule Take 1 capsule by mouth daily Active COMPOUNDED MEDICATION, PRESCRIPTION, Bio-Identica l Active [place] Thyroid 60 mg tablet 07/14/2021 Active busPIRone [...] 06/21/2024 Assessment & Plan (06/21/2024 3:50 PM LINOLEUM INSTALLER): Impression: Patient reports the pain to her left lower extremity associated with varicose veins. Patient has had sclerotherapy done to bilateral lower extremities with the most recent treatment approximately [address] Jaramillo. On exam, patient has a dilated vein noted to the left medial calf [id number]. Patient does not wear compression therapy at this time. Plan: Recommend compression therapy. -prescription for medical grade compression stockings given to patient to fill at [place] [facility]. -patient to follow up as needed. Osteopenia of multiple sites 12/23/2020 Assessment & Plan (12/23/2020 3:08 PM CDT): Due for DEXA scan. Patient not currently taking calcium or vitamin d supplement. Acute pain of right shoulder 12/23/2020 Assessment & Plan (12/23/2020 3:08 PM CDT): [place] at biceps tendon insertion. Offered xray and [...] 02/07/2019 Assessment & Plan (06/21/2024 3:50 PM LINOLEUM INSTALLER): Impression: Chronic and well controlled. Plan: Continue Synthroid Assessment & Plan (03/08/2019 5:47 PM CDT): Chronic- Refill given on [place] thyroid. Primary osteoarthritis of both hands 02/07/2019 [...] on file Legal Sex Female 9:43 PM LINOLEUM INSTALLER Gender Identity Not on file Sexual Orientation Not on file Last Filed Vital Signs Vital Sign Reading Time Taken Comments Blood Pressure 145/83 06/20/2024 9:30 AM LINOLEUM INSTALLER Pulse 71 06/20/2024 9:30 AM LINOLEUM INSTALLER Temperature 36.9 C (98.4 F) 03/01/2022 12:25 PM CDT Respiratory Rate 18 03/01/2022 12:25 PM CDT Oxygen Saturation 98% 06/20/2024 9:30 AM LINOLEUM INSTALLER Inhaled Oxygen Concentration - - Weight 55.8 kg (123 lb) 06/20/2024 9:30 AM LINOLEUM INSTALLER Height 165.1 cm (5' 5) 06/20/2024 9:30 AM LINOLEUM INSTALLER Body Mass Index 20.47 06/20/2024 9:30 AM LINOLEUM INSTALLER Plan of Treatment Not on file Insurance UHC MEDICARE ADVANTAGE [facility] MEDICARE Address: [address] [address] [place] [address] [employer] MEDICARE GOLD Care Teams Union Contract Representative Relationship Specialty Start Date End Date Michi Sanchez MD PCP - General Family Medicine 03/01/22
--- OUTSIDE RECORDS SUMMARY | 2024-10-22 13:58 | XMS_ITS ---
Author Organization [facility] Address [address], [place] [id number] Care Team Providers Care Actimize Architect Name Role Phone Migration, Provider Unavailable Unavailable REASON FOR VISIT EMR-Cachorro Encounters Encounter Location Date Provider Diagnosis [facility] [address], [place] [phone] 08/11/2024 Prov ider Migration Plan Of Treatment No Information Progress Notes * Leonardo GERMAINB: 955 (69 yo F)Acc No.[id number]:08/11/2024 Patient: Ann-Marie MA :1955 A ge:69 Y S ex:Female Phone: Address:[address] [place], [address] Subjective: * Chief Complaints: * E MR-Cachorro * * Date:
--- OUTSIDE RECORDS SUMMARY | 2024-10-22 13:58 | XMS_ITS | Clinical Summary ---
Author Organization [facility] Address [address] [place] [address] Phone Care Team Providers Care Propulsion Engineer Name Role Phone Michi Sanchez MD Primary Care Provider + [phone] Allergies No known active allergies Medications diclofenac DR (VOLTAREN) 75 mg EC tablet TK 1 T PO BID 3 12/28/2018 Active ALPRAZolam (XANAX) 0.5 mg tablet Take 0.5 mg by mouth nightly as needed Active multivitamin capsule Take 1 capsule by mouth daily Active COMPOUNDED MEDICATION, PRESCRIPTION, Bio-Identica l Active [place] Thyroid 60 mg tablet 07/14/2021 Active busPIRone [...] 06/21/2024 Assessment & Plan (06/21/2024 3:50 PM AUTOMOBILE BRAKE BONDER): Impression: Patient reports the pain to her left lower extremity associated with varicose veins. Patient has had sclerotherapy done to bilateral lower extremities with the most recent treatment approximately [address] Jaramillo. On exam, patient has a dilated vein noted to the left medial calf [id number]. Patient does not wear compression therapy at this time. Plan: Recommend compression therapy. -prescription for medical grade compression stockings given to patient to fill at [place] [facility]. -patient to follow up as needed. Osteopenia of multiple sites 12/23/2020 Assessment & Plan (12/23/2020 3:08 PM CDT): Due for DEXA scan. Patient not currently taking calcium or vitamin d supplement. Acute pain of right shoulder 12/23/2020 Assessment & Plan (12/23/2020 3:08 PM CDT): [place] at biceps tendon insertion. Offered xray and [...] 02/07/2019 Assessment & Plan (06/21/2024 3:50 PM AUTOMOBILE BRAKE BONDER): Impression: Chronic and well controlled. Plan: Continue Synthroid Assessment & Plan (03/08/2019 5:47 PM CDT): Chronic- Refill given on [place] thyroid. Primary osteoarthritis of both hands 02/07/2019 [...] on file Legal Sex Female 9:43 PM AUTOMOBILE BRAKE BONDER Gender Identity Not on file Sexual Orientation Not on file Obstetrics History Last Filed Vital Signs Vital Sign Reading Time Taken Comments Blood Pressure 145/83 06/20/2024 9:30 AM AUTOMOBILE BRAKE BONDER Pulse 71 06/20/2024 9:30 AM AUTOMOBILE BRAKE BONDER Temperature 36.9 C (98.4 F) 03/01/2022 12:25 PM CDT Respiratory Rate 18 03/01/2022 12:25 PM CDT Oxygen Saturation 98% 06/20/2024 9:30 AM AUTOMOBILE BRAKE BONDER Inhaled Oxygen Concentration - - Weight 55.8 kg (123 lb) 06/20/2024 9:30 AM AUTOMOBILE BRAKE BONDER Height 165.1 cm (5' 5) 06/20/2024 9:30 AM AUTOMOBILE BRAKE BONDER Body Mass Index 20.47 06/20/2024 9:30 AM AUTOMOBILE BRAKE BONDER Plan of Treatment Health Maintenance Due Date [...] 5 season) 2024 07/02/2020, 06/11/2020 Influenza Vaccine (Season Ended) 2025 04/08/2020, 02/07/2019, 03/14/2017, Additional history exists DTaP/Tdap/Td Vaccine (3 - Td or Tdap) 03/08/2029 03/08/2019, 03/08/2019 Hepatitis C Screening Discontinued Insurance [facility] MEDICARE ADVANTAGE [employer] MEDICARE GOLD Care Teams Propulsion Engineer Relationship Specialty Start Date End Date Michi Sanchez MD PCP - General Family Medicine 03/01/22
--- NOTE | 2024-10-22 13:59 | CY_PTH ---
PATIENT: Ann-Marie Germain LOC: ANHIMG U#:[id number] AGE/SX: 69/F ROOM: RE10/22/[address]: Ceferino Marquez MD : 1955 BED: DIS: 10/22/2024 SPEC #: [id number] RECD: 10/22/24 14:03 STATUS: MEETA REQ #: [id number] COLEEN: 10/22/24 13:[address]: Ceferino Marquez DEPT: [facility] Cytology RECD BY: Bailee Marshall MLT, ([facility]) ENTERED: 10/22/24 14:03 SP TYPE: Cytology OTHR DR: Michi Sanchez MD Tissues: A - FNA Thyroid Procedures: Hematoxylin and Eosin Stain Cell Block Fine Needle Aspiration Evaluation Fna Additional Pass Fine Needle Aspiration Pathologist
== END 2024-10-22 12:47 | disposition home or self-care (01) ==
PROVIDERS: PCP Family Medicine; Visit Provider Internal Medicine
DX: E04.2 Nontoxic multinodular goiter (principal); E03.9 Hypothyroidism, unspecified
CPT/HCPCS: 10005; 88172; 88173; 88177; 88305